=== PATIENT | male | born 1950 | race Caucasian/White ===

== ENCOUNTER 2022-05-28 18:15 | Emergency (ER) | payer MEDICARE, SELFPAY ==
[2022-05-28 18:17] VITALS: BP 145/116; PULSE 99; RESP 16; TEMP 36.1; O2SAT 93; BMI 26.7
--- NOTE | 2022-05-28 18:34 | EDS_ITS ---
HPI History of Present Illness Chief Complaint: Hypotension Detail of Chief Complaint: Not feeling well and low blood pressure. Informant: patient, spouse/S.O. and family Onset/Context/Timing Onset: Today Context: Sudden Onset Timing: Continuous Quality: Generalized unwellness and low blood pressure Location: Sitting at home Current Severity: Mild Maximum Severity: Moderate Worsened by: Nothing Relieved by: Nothing Associated Symptoms Associated Symptoms: Slight cough Narrative Narrative: Patient is a 71-year-old male with history of Parkinson's disease, polycythemia vera, type 2 diabetes, anticoagulant therapy, hypertension, pituitary macroadenoma with extracellular extension, central hypothyroidism, male hypergonadism, prostate cancer and CVA who presents with not feeling well. He has not had a subjective or documented fever. He does have abnormal motion due to Parkinson's. He denies headache, visual, ocular auditory symptoms. He does have mild congestion which he contributes to her hereditary, being [place]ra[place]. He has a slight cough per that started the past 12 to 24 hours. Cough is nonproductive. He denies nausea, vomiting diarrhea. He denies dysuria or hematuria. He does endorse frequency and urgency. He denies black or maroon- colored stool. He denies diarrhea. He denies rash. He was recently started on hydroxyurea for polycythemia vera. His work-up was performed [facility]. He had a bone marrow. His local oncologist is Dr. Yg Barber. Prior similar symptoms: No Recent Illness/Hospitalization: Yes PFSH PFSH Medical History no medical history no medical history (Documented in the HPI narrative) Home Medications ciprofloxacin HCl 250 mg tablet 250 mg PO BID #14 tabs 05/28/22 [Rx Last Taken Unknown] Allergy/AdvReac Type Severity Reaction Status Date / Time Penicillins [PCN] Allergy Other Verified 05/28/22 18:16 Sulfa (Sulfonamide Allergy Rash Verified 05/28/22 18:16 Antibiotics) Social History (Updated 05/28/22 @ 18:[address] Channing Craven MD) household members: spouse Smoking Status: Never smoker substance use type: does not use ROS ROS ED Constitutional Constitutional ED: Denies chills, fever(s), subjective, sweats or weight loss Eyes Eyes: Denies blurry vision, change in vision or diplopia ENT ENT ED: Denies ear pain, rhinorrhea or sore throat Cardiovascular Cardiovascular: Denies chest pain, orthopnea, palpitations, paroxysmal nocturnal dyspnea or racing heartbeat Respiratory/Chest Respiratory/Chest: Reports cough; Denies dyspnea, dyspnea on exertion, orthopnea or paroxysmal nocturnal dyspnea Gastrointestinal Gastrointestinal: Denies abdominal pain, diarrhea, melena, nausea or vomiting Genitourinary Genitourinary ED: Reports urinary frequency and other Details: Frequency ; Denies dysuria or hematuria Musculoskeletal Musculoskeletal: Denies arthralgias, back pain, myalgias or neck pain Integumentary Denies rash Neurologic Neurologic: Reports weakness; Denies headache(s) or paresthesias Endocrine Endocrinology: Denies cold intolerance or heat intolerance Hematologic/Lymphatic Hematologic/Lymphatic: Reports systems reviewed and no addt'l complaints, except as documented EXAM Physical Exam Const Vital Signs: 05/28/22 18:17 05/28/22 18:28 05/28/22 18:52 Temperature 97 F L Temperature Source Temporal Pulse Rate 99 Pulse Rate [Lying] 101 H Pulse Rate [Sitting (for 1 minute prior to obtaining)] 112 H Pulse Rate [Standing (for 1 minute prior to obtaining)] 120 H Respiratory Rate 16 Respiratory Pattern Normal Blood Pressure 145/116 H Blood Pressure [Lying] 96/56 L Blood Pressure [Sitting (for 1 minute prior to obtaining)] 199/167 H Blood Pressure [Standing (for 1 minute prior to obtaining)] 211/190 H Blood Pressure Mean 125 Blood Pressure Mean [Lying] 69 Blood Pressure Mean [Sitting (for 1 minute prior to obtaining)] 177 Blood Pressure Mean [Standing (for 1 minute prior to obtaining)] 197 Pulse Ox 93 Oxygen Delivery Method Room Air 05/28/22 19:08 05/28/22 21:19 05/28/22 23:05 Temperature Temperature Source Pulse Rate 102 H 98 Pulse Rate [Lying] Pulse Rate [Sitting (for 1 minute prior to obtaining)] Pulse Rate [Standing (for 1 minute prior to obtaining)] Respiratory Rate 21 H 20 H Respiratory Pattern Blood Pressure 141/69 H 142/100 H 116/87 H Blood Pressure [Lying] Blood Pressure [Sitting (for 1 minute prior to obtaining)] Blood Pressure [Standing (for 1 minute prior to obtaining)] Blood Pressure Mean 93 114 96 Blood Pressure Mean [Lying] Blood Pressure Mean [Sitting (for 1 minute prior to obtaining)] Blood Pressure Mean [Standing (for 1 minute prior to obtaining)] Pulse Ox 95 96 Oxygen Delivery Method Room Air Room Air Positive well nourished and well developed Constitutional Narrative: Masked face consistent with Parkinson's disease. General Appearance ED: well developed and NAD; Negative for pallor HEENT Reports dry mucous membranes HEENT Narrative: Head is atraumatic normocephalic. Ears normal. TMs normal. Nares patent no discharge. Posterior pharynx out erythema or exudate. Mouth ED: Yes dry mucous membranes Mouth: dry mucous membranes Eyes PERRL and EOMs intact bilaterally General Eye ED: Negative for pale conjunctiva or scleral icterus Neck no lymphadenopathy, supple and no JVD Chest Wall inspection of chest normal Resp normal respiratory effort and clear to auscultation bilaterally Cardio regular rate, regular rhythm, S1 normal heart sound, S2 normal heart sound and no murmurs GI normal to inspection, nondistended, normoactive bowel sounds, non-tender, non- distended and no masses; Negative for hepatosplenomegaly Back/Spine no CVA tenderness Thoracic Spine / Upper Back: Negative for thoracic spinal tenderness Lumbar Spine / Lower Back: Negative for lumbar spinal tenderness Extremity normal to inspection General Extremety ED: Negative for edema or tenderness General Extremity: Negative for edema Neuro oriented x3, CN's II-XII intact bilaterally and no sensory deficits noted Sensorium / Orientation: alert Psych mental status grossly normal Skin no rashes or lesions noted, no wounds and skin turgor normal General Skin Exam: Negative for jaundice or pallor MDM MDM MDM Narrative Medical decision making narrative: The hypotension may be due to Parkinson's disease. May also represent an infectious cause. This may also represent hypovolemia. Will obtain orthostatic vital signs, CBC, electrolyte panel and urinalysis. Because reports cough will obtain a chest x-ray to evaluate for pneumonia. Old records as well as outside records reviewed and summarized in the HPI narrative. Lab Data Attestation: I reviewed the patient's lab results. Lab results narrative: White count is normal. Patient has mild anemia. There is evidence of hyponatremia. Creatinine is elevated 2.04. Ciprofloxacin dose will need to be adjusted since GFR is 34. Urine reveals pyuria with 1+ bacteria. There is positive occult blood and leukoesterase. Nitrites were negative. Since patient is symptomatic we will treat with dose of Rocephin in the emergency department and discharged with prescription for ciprofloxacin. Patient requested prescription refilled in the retail pharmacy. He has had reaction to penicillin and apparently reported nausea with cephalexin. This does not prohibit use of third-generation cephalosporin. He does have complaint of rash with sulfa. Labs: Laboratory Results - last 24 hr 05/28/22 05/28/22 05/28/22 18:43 18:43 20:41 WBC 7.5 RBC 3.63 L Hgb 12.4 L Hct 36.2 L MCV 99.7 H MCH 34.2 H MCHC 34.3 RDW Std Deviation 59.3 H RDW Coeff of [place] 16.0 H Plt Count 214 MPV 9.8 Immature Gran % (Auto) 0.400 Neut % (Auto) 78.3 H Lymph % (Auto) 8.3 L [place] % (Auto) 12.3 H Eos % (Auto) 0.0 Baso % (Auto) 0.7 Absolute Neuts (auto) 5.9 Absolute Lymphs (auto) 0.62 L Nucleated RBC % 0 Sodium 131 L Potassium 3.7 Chloride 95 L Carbon Dioxide 24.0 Anion Gap 12 BUN 39 H Creatinine 2.04 H Estim Creat Clear Calc 27.41 Est GFR (MDRD) Af Amer 41 L Est GFR (MDRD) Non-Af 34 L BUN/Creatinine Ratio 19.1 Glucose 170 H Calcium 8.1 L Total Bilirubin 0.70 AST 47 H ALT 12 L Alkaline Phosphatase 55 Total Protein 7.1 Albumin 3.0 L Globulin 4.1 Albumin/Globulin Ratio 0.7 L TSH 1.15 Urine Color Yellow Urine Clarity Clear Urine pH 6.0 Ur Specific [place] 1.010 Urine Protein 100 H Urine Glucose (UA) Normal Urine Ketones 5 H Urine Occult Blood 150 H Urine Nitrite Negative Urine Bilirubin Negative Urine Urobilinogen Normal Ur Leukocyte Esterase 25 H Urine RBC 0-5 SEEN Urine WBC 5-10 SEEN Ur Squamous Epith Cells 0-5 SEEN Urine Bacteria 1+ Urine Mucus 0 SEEN Radiography Diagnostic Testing: Clinical Impression(s) from Imaging Studies Chest X-Ray 05/28/22 20:00 IMPRESSION: No radiographic evidence of acute cardiopulmonary disease. Electronically Signed: Arsenio Eisenberg MD at 20:22 EST , Treatment and Re-Evaluation Narrative: IV antibiotics and discharged with prescription for ciprofloxacin Discharge Plan Triage Chief Complaint: Hypotension ED Provider: Channing Craven Dx/Rx/DC Orders Clinical Impression: Urinary tract infection, Autonomic dysfunction, Parkinson's disease with neurogenic orthostatic hypotension, Anemia, unspecified Instructions: ED Bladder Infection, Male (Adult) Prescriptions: New ciprofloxacin HCl 250 mg tablet 250 mg PO BID Qty: 14 0RF Primary Care Provider: Yg Mcgowan Referrals: Yg Mcgowan [Primary Care Provider] - 3-5 Days Disposition Disposition: Home, Self Care
[2022-05-28 18:52] VITALS: BP 199/167; BP 211/190; BP 96/56; PULSE 101; PULSE 112; PULSE 120
[2022-05-28 18:56] LABS: Absolute Lymphocyte Count 0.62 X10^3/uL (0.83-4.51); Absolute Neutrophil Count 5.9 X10^3/uL (2.0-7.7); Basophil# 0.05 X10^3/uL; Basophil% 0.7 % (0-1); Hematocrit 36.2 % (40-54); Hemoglobin 12.4 g/dL (13.0-16.5); Lymphocyte # 0.62 X10^3/ul (0.83-4.51); Lymphocyte % 8.3 % (19-41); Mean Corp Hgb Conc 34.3 g/dL (32-36); Mean Corpuscular Hgb 34.2 pg (27.0-32.0); Mean Corpuscular Volume 99.7 fL (80-94); Mean Platelet Vol. 9.8 fl (6.2-12.0); Monocyte# 0.92 X10^3/uL; Monocyte% 12.3 % (0-10); NRBC Flagged by Analyzer 0 % (0-5); Neutrophil # 5.87 X10^3/uL (2.7-7.7); Neutrophil % 78.3 % (47-70); Platelet Count 214 K/mm3 (150-450); RBC Distribution Width SD 59.3 fl (35.1-43.9); Red Blood Count 3.63 M/mm3 (4.6-6.2); White Blood Count 7.5 K/mm3 (4.4-11.0)
[2022-05-28 19:08] VITALS: BP 141/69
[2022-05-28 19:21] LABS: ALB/GLOB Ratio 0.7 RATIO (0.9-2.4); AST(SGOT) 47 U/L (15-37); Alanine Aminotransfer ALT/SGPT 12 U/L (16-61); Alkaline Phosphatase 55 U/L (45-117); Anion Gap 12 (5-15); BUN 39 mg/dL (7-18); BUN/Creat Ratio 19.1 RATIO (10-20); Calcium,Total 8.1 mg/dL (8.5-10.1); Chloride 95 mmol/L (98-107); Creatinine, Serum 2.04 mg/dL (0.70-1.30); EST Glomerular Filtration Rate 34 mL/min (>60); Est Glom Filt Rate - Afr Amer 41 mL/min (>60); Estimated Creatinine Clearance 27.41 ml/min; Globulin 4.1 g/dL (2.2-4.2); Glucose 170 mg/dL (74-106); Potassium 3.7 mmol/L (3.5-5.1); Protein, Total 7.1 g/dL (6.4-8.2); Sodium Level 131 mmol/L (136-145); Thyroid Stim Hormone (TSH) 1.15 uIU/mL (0.358-3.74)
--- NOTE | 2022-05-28 19:30 | ED.RN ---
Pt BP dropped to 70/54 while this RN was in the room. notified, given order for 500cc bolus NS. Pt also repositioned, BP improved to 94/56.
--- NOTE | 2022-05-28 20:00 | RAD_ITS ---
EXAM: XR CHEST, 2 VIEWS CLINICAL INDICATION: Mild cough TECHNIQUE: Frontal and lateral views of the chest. This report was created using [employer] report generation technology. COMPARISON: None. FINDINGS: LUNGS AND PLEURAL SPACES: Unremarkable. No consolidation or edema. No pneumothorax. No effusion. HEART: Unremarkable. Cardiac silhouette not enlarged. MEDIASTINUM: Central airways and mediastinal contour are unremarkable. BONES/JOINTS: Unremarkable. SOFT TISSUES: Unremarkable. RAD/Chest PA and Lateral IMPRESSION: No radiographic evidence of acute cardiopulmonary disease. Electronically Signed: Arsenio Eisenberg MD at 20:22 EST ,
[2022-05-28 20:55] LABS: Mucous, Urine 0 SEEN /hpf (<or=2+)
[2022-05-28 21:00] LABS: Color, Urine Yellow (Yellow); Glucose, Dipstick Normal (Normal); Ketone-Dipstick 5 mg/dl (Negative); Leukocyte Esterase-Dipstick 25 /ul (Negative); Nitrite-Dipstick Negative (Negative); Occult Blood-Urine 150 /ul (Negative); Protein-Dipstick 100 mg/dl (Negative); Urine Bilirubin Dipstick Negative (Negative); Urine Clarity Clear (Clear); Urine Urobilinogen Normal (Normal)
[2022-05-28 21:07] LABS: Bacteria 1+ /hpf (None Seen); Red Blood Cells-Urine 0-5 SEEN /hpf (0-5); Squamous Epithelial Cells - UA 0-5 SEEN /hpf (0-5); White Blood Cells 5-10 SEEN /hpf (0-5)
[2022-05-28 21:19] VITALS: BP 142/100; PULSE 102; RESP 21; O2SAT 95
[2022-05-28] MEDS: Ceftriaxone 1 GM/50 ML BAG IV (23:02)
[2022-05-28 23:05] VITALS: BP 116/87; PULSE 98; RESP 20; O2SAT 96
[2022-05-28 23:40] VITALS: BP 103/92; PULSE 103; RESP 24; O2SAT 95
== END 2022-05-29 | disposition home or self-care (01) ==
PROVIDERS: Emergency Provider Emergency Medicine; PCP Family Medicine; Visit Provider Emergency Medicine
DX: N39.0 Urinary tract infection, site not specified (principal); G20 Parkinson's disease; I95.1 Orthostatic hypotension; D64.9 Anemia, unspecified; Z86.73 Personal history of transient ischemic attack (TIA), and cerebral infarction without residual deficits
CPT/HCPCS: 71046; 80053; 81001; 84443; 85025; 87086; 87088; 96365; 99285; J7030